=== PATIENT | male | born 1955 | race Caucasian/White ===

== ENCOUNTER 2017-07-18 10:18 | Emergency (ER) | payer MEDICARE ==
[~2017-07-18 10:18] MED LIST: ISOVUE-370 76%-LOCM 1 ML ONE
[2017-07-18 11:28] LABS: Troponin I 0.288 ng/mL (< 0.028)
[2017-07-18 11:55] LABS: #Basophils 0.1 thou/uL (0.0-0.2); #Eosinphils 0.3 thou/uL (0.0-0.7); #Lymphocytes 0.8 thou/uL (1.20-3.40); #Monocytes 0.7 thou/uL (0.11-0.59); #Neutrophils 6.5 thou/uL (1.40-6.50); %Basophils 0.8 % (0.0-1.0); %Eosinophils 3.9 % (0.0-10.0); %Lymphocytes 9.6 % (21.0-51.0); %Monocytes 8.7 % (0.0-10.0); Hematocrit 38.4 % (42.0-52.0); Mean Platelet Volume 5.9 fL (7.4-10.4); Red Blood Cell (RBC) Count 4.12 mill/uL (4.70-6.10); White Blood Cell (WBC) Count 8.5 thou/uL (4.8-10.8)
[2017-07-18 11:58] LABS: ALT (SGPT) 11 U/L (8-55); AST (SGOT) 16 U/L (5-34); Alkaline Phosphatase 180 U/L (40-150); Anion Gap 15 mmol/L (10-20); BUN (Urea Nitrogen) 26 mg/dL (8.4-25.7); Bilirubin, Total 0.6 mg/dL (0.2-1.2); Calc. Creatinine Clearance 0 mL/min (70-130); Calcium 8.9 mg/dL (7.8-10.44); Carbon Dioxide 28 mmol/L (23-31); Chloride 98 mmol/L (98-107); Estimated GFR-MDRD 35; Protein, Total 6.4 g/dL (5.8-8.1)
--- NOTE | 2017-07-18 13:07 | CT ---
CT ARTERIOGRAM CHEST WITH IV CONTRAST AND 3D MIP IMAGING: HISTORY: Dyspnea. Elevated troponin. FINDINGS: There is good contrast opacification of the pulmonary arteries and thoracic aorta with normal branchi ng of the great vessels. Calcification is present within the coronary arteries. A large amount of bilateral pleural fluid is present with atelectasis at each lung base. Two nodules within the left upper lobe, each measuring 0.5 cm greatest diameter. A 0.4 cm nodule is present wit hin the right upper lobe. No bulky mediastinal adenopathy is apparent. IMPRESSION: 1. No CT evidence of pulmonary embolus. 2. Large bilateral pleural effusions. 3. Atherosclerosis. 4. Bilateral small parenchymal lung nodules. Please consider followup CT in 6 months to evaluate fo r stability. POS: REINALDO
[2017-07-18] MEDS ORDERED: HYDROcodone/Acetaminophen 10/325 mg Tablet ONE (14:33)
[2017-07-18] MEDS ORDERED: Furosemide 40 MG/4 ML VIAL ONE (14:34)
--- NOTE | 2017-08-23 12:47 | EKG ---
Test Reason : Blood Pressure : / mmHG Vent. Rate : 102 BPM Atrial Rate : 102 BPM P-R Int : 196 ms QRS Dur : 078 ms QT Int : 364 ms P-R-T Axes : 028 017 076 degrees QTc Int : 474 ms Sinus tachycardia Nonspecific ST and T wave abnormality Abnormal ECG Confirmed by ANNA HERNANDEZ, KELVIN ([id number]), image editor CELIA DUMONT ([id number]) on 08/23/2017 12:47:25 PM Referred By: DR CASTILLO Confirmed By:KELVIN CASTILLO MD
== END 2017-07-18 18:45 | disposition short-term general hospital (02) ==
LOC: ERS 10:18
DX: J90 Pleural effusion, not elsewhere classified (principal); R09.02 Hypoxemia; E11.9 Type 2 diabetes mellitus without complications; E78.5 Hyperlipidemia, unspecified; I10 Essential (primary) hypertension; I25.2 Old myocardial infarction; Z85.038 Personal history of other malignant neoplasm of large intestine; Z85.820 Personal history of malignant melanoma of skin; Z87.891 Personal history of nicotine dependence
CPT/HCPCS: 36416; 71275; 85379; 93005; 94760; 96374; J1940

== ENCOUNTER 2024-06-28 21:26 | Observation (INO) | payer OTHER ==
[2024-06-29] MEDS ORDERED: Acetaminophen 325 MG TAB PO PRN (02:34)
[2024-06-29] MEDS ORDERED: Ondansetron ODT 4 MG TAB PO PRN (02:34)
[2024-06-29] MEDS ORDERED: Ondansetron PF 4 MG/2 ML Vial IVP PRN (02:34)
[2024-06-29] MEDS ORDERED: Acetaminophen 650 MG Suppository PR PRN (02:34)
[2024-06-29] MEDS ORDERED: Dextrose 5% in Water 1,000 ML IV PRN (02:36)
[2024-06-29] MEDS ORDERED: Glucagon 1 MG/ML KIT IM PRN (02:36)
[2024-06-29] MEDS ORDERED: Dextrose 50% Abboject 50 ML SYRINGE SLOW IVP PRN (02:36)
[2024-06-29 03:17] VITALS: BMI 26.0
[2024-06-29] MEDS: Sodium Chloride 0.9% 1,000 ML IV SCH (03:25)
[2024-06-29 03:59] LABS: #Basophils 0.06 10x3/uL (0.0-0.2); %Basophils 1.1 % (0.0-1.0); %Eosinophils 2.8 % (0.0-10.0); %Lymphocytes 20.7 % (21.0-51.0); %Monocytes 10.9 % (0.0-10.0); %Neutrophils 63.8 % (42.0-75.0); Hematocrit 37.9 % (42.0-52.0); Hemoglobin 12.6 g/dL (14.0-18.0); Mean Corpuscular HGB CONC 33.2 g/dL (32.0-36.0); Mean Corpuscular Hemoglobin 29.9 pg (27.0-31.0); Mean Corpuscular Volume 89.8 fL (78.0-98.0); Mean Platelet Volume 9.4 fL (7.4-10.4); Platelet Count 260 10x3/uL (130-400); RBC Distribution Width 12.4 % (11.5-14.5); Red Blood Cell (RBC) Count 4.22 mill/uL (4.70-6.10)
[2024-06-29 04:13] LABS: Hemoglobin A1c 6.9 % (4.0-6.0)
[2024-06-29 04:20] LABS: Anion Gap 15 mmol/L (10-20); BUN (Urea Nitrogen) 39 mg/dL (8.4-25.7); Calc. Creatinine Clearance 36 mL/min (70-130); Calcium 8.9 mg/dL (7.8-10.44); Carbon Dioxide 21 mmol/L (23-31); Chloride 103 mmol/L (98-107); Estimated GFR 34; Glucose 247 mg/dL (80-115); Sodium 135 mmol/L (136-145)
[2024-06-29] MEDS: Empagliflozin 10 MG TAB PO SCH (08:25)
[2024-06-29] MEDS: Clopidogrel Bisulfate 75 MG TAB PO SCH (08:25)
[2024-06-29] MEDS: Aspirin 81 mg Enteric Coated Tablet PO SCH (08:25)
[2024-06-29] MEDS: Famotidine 20 MG TAB PO SCH (08:26)
[2024-06-29] MEDS: Gabapentin 300 MG CAP PO SCH (08:26)
[2024-06-29] MEDS: Carvedilol 6.25 MG TAB PO SCH (08:26)
[2024-06-29] MEDS: Glimepiride 2 MG TAB PO SCH (08:26)
[2024-06-29] MEDS: Insulin Glargine 30 UNITS/0.3 ML VIAL SC SCH (10:46)
[2024-06-29 13:09] VITALS: BP 106/69; TEMP 97.9
[2024-06-29] MEDS ORDERED: FLU (Fluad Triv) TS24-25 (65UP)/MF59C/PF 45 MCG/0.5 ML Syringe IM ONE (18:00)
[2024-06-29] MEDS ORDERED: Atorvastatin Calcium 40 MG TAB PO SCH (21:00)
[2024-07-02] MEDS ORDERED: FLU (Fluad Triv) TS24-25 (65UP)/MF59C/PF 45 MCG/0.5 ML Syringe IM ONE (09:00)
== END 2024-06-29 14:30 | disposition home or self-care (01) ==
LOC: INTOOBSV 06-29 01:54 → PCU 06-29 01:54
PROVIDERS: ADMIT Internal Medicine; ATTEND Internal Medicine
DX: E11.649 Type 2 diabetes mellitus with hypoglycemia without coma (principal); N17.9 Acute kidney failure, unspecified; I12.9 Hypertensive chronic kidney disease with stage 1 through stage 4 chronic kidney disease, or unspecified chronic kidney disease; N18.30 Chronic kidney disease, stage 3 unspecified; E11.22 Type 2 diabetes mellitus with diabetic chronic kidney disease; I25.2 Old myocardial infarction; I25.10 Atherosclerotic heart disease of native coronary artery without angina pectoris; C18.9 Malignant neoplasm of colon, unspecified; Z90.49 Acquired absence of other specified parts of digestive tract; Z87.891 Personal history of nicotine dependence; Z79.899 Other long term (current) drug therapy
CPT/HCPCS: 80048; 82962; 83036; 85025; G0378; 36415; 36416; J1815